=== PATIENT | female | born 1965 ===

== ENCOUNTER 2021-12-09 09:44 | Observation (INO) ==
[2021-12-09] MEDS ORDERED: HYDROmorphone 1 MG/1 ML SYRINGE IV ONE (10:20)
[2021-12-09 10:35] LABS: ABS Basophils 0.1 10^3/ul (0-0.2); ABS Eosinophils 0.1 10^3/ul (0-0.6); ABS Lymphocytes 1.1 10^3/ul (1.0-4.8); ABS Monocytes 0.3 10^3/ul (0-0.8); ABS Neutrophils 2.8 10^3/ul (1.5-7.7); Eosinophil % 3.1 %; Hematocrit 41 % (35-47); Hemoglobin 13.5 g/dL (12.0-16.0); Lymphocyte % 24.2 %; Mean Corpuscular HGB Conc 33 g/dL (31-36); Mean Corpuscular Hemoglobin 30 pg (27-31); Mean Corpuscular Volume 90 fL (80-97); Mean Platelet Volume 10.4 fL (7.4-10.4); Platelet Count 206 10^3/uL (150-450); Red Blood Count 4.55 10^6 /uL (3.70-4.87); Red Cell Distribution Width 14 % (10-15); White Blood Count 4.4 10^3/uL (3.5-10.8)
[2021-12-09] MEDS ORDERED: Morphine 4 MG/ML VIAL (1 ml) IV ONE ×2 (10:53→11:51)
[2021-12-09 10:59] LABS: Albumin 4.6 g/dL (3.2-5.2); Albumin/Globulin Ratio 2.1 (1-3); Calcium 9.3 mg/dL (8.6-10.3); Globulin 2.2 g/dL (2-4); Potassium 4.5 mmol/L (3.5-5.0); Total Bilirubin 0.5 mg/dL (0.2-1.0); Total Protein 6.8 g/dL (6.4-8.9); eGFR CKD-EPI 80.9 (>60)
[2021-12-09] MEDS ORDERED: Midazolam 5 mg/5 ml VIAL 1 mg/ml 5 ml VIAL (5 mg) IV SLOW PU ONE (12:20)
[2021-12-09] MEDS ORDERED: fentaNYL 100 mcg/2 ml 50 MCG/ML VIAL IV SLOW PU ONE (12:20)
[2021-12-09] MEDS ORDERED: Magnesium Hydroxide LIQ 30 ML UDC PO PRN (12:23)
[2021-12-09] MEDS ORDERED: diPHENhydraMINE 25 mg TAB PO PRN (12:23)
[2021-12-09] MEDS ORDERED: Ondansetron 4 mg VIAL 2 MG/ML 2 ml VIAL IV PRN ×2 (12:23→18:10)
[2021-12-09] MEDS ORDERED: Morphine 4 MG/ML VIAL (1 ml) IV PRN (12:23)
[2021-12-09] MEDS ORDERED: Lactulose 30 ml UDC PO PRN (12:23)
[2021-12-09] MEDS ORDERED: Ondansetron ODT 4 mg TAB 4 MG TAB PO PRN (12:23)
[2021-12-09] MEDS ORDERED: diPHENhydraMINE IV 50 MG/ML 1 ml VIAL (BENADRYL) IV PRN (12:23)
[2021-12-09] MEDS ORDERED: Flumazenil 0.5 mg/5 ml 0.1 MG/ML 5 ml VIAL ONE (12:46)
[2021-12-09] MEDS ORDERED: Naloxone 4 mg VIAL 0.4 MG/ML 10 ml VIAL (4 mg) ONE (12:46)
[2021-12-09] MEDS ORDERED: Lactated Ringers 1000 ml BAG 1,000 ML IV SCH (13:00)
[2021-12-09] MEDS ORDERED: fentaNYL 100 mcg/2 ml 50 MCG/ML VIAL ONE ×3 (13:28→18:22)
[2021-12-09] MEDS ORDERED: Midazolam 5 mg/5 ml VIAL 1 mg/ml 5 ml VIAL (5 mg) ONE (13:29)
[2021-12-09] MEDS ORDERED: Lidocaine 2% PF 5 ML VIAL ONE (16:31)
[2021-12-09] MEDS ORDERED: Propofol 10 MG/ML 20 ML BTL ONE ×2 (16:31→19:41)
[2021-12-09] MEDS ORDERED: Rocuronium 50 mg VIAL 10 mg/ml 5 ml VIAL (50 mg) ONE (16:32)
[2021-12-09] MEDS ORDERED: Midazolam 2 mg/2 ml VIAL 1 mg/ml 2 ml VIAL (2 mg) ONE (16:32)
[2021-12-09 16:39] LABS: INR 1.09 (0.86-1.15)
[2021-12-09] MEDS ORDERED: Lidocaine 1% MPF 5 ML VIAL ONE (16:49)
[2021-12-09] MEDS ORDERED: ROPIVACAINE 5 MG/ML 30 ML BTL (0.5%) ONE (16:49)
[2021-12-09] MEDS ORDERED: Bupivacaine 0.25% SDV 30 ML ONE (16:50)
[2021-12-09] MEDS ORDERED: ceFAZolin 2 GM in NS PREMIX 2 GM/100 ML BAG IVPB ONE (17:23)
[2021-12-09] MEDS ORDERED: Acetaminophen IV 1 GM/100ML 100 ML IV PRN (18:10)
[2021-12-09] MEDS ORDERED: DiMENhydriNATE IV 50 mg/ml 1 ml VIAL IV PUSH PRN (18:10)
[2021-12-09] MEDS ORDERED: fentaNYL 100 mcg/2 ml 50 MCG/ML VIAL IV PRN (18:10)
[2021-12-09] MEDS ORDERED: Naloxone 0.4 mg VIAL 0.4 mg/ml 1 ml VIAL IV PRN (18:10)
[2021-12-09] MEDS ORDERED: Ondansetron 4 mg VIAL 2 MG/ML 2 ml VIAL ONE (18:20)
[2021-12-09] MEDS ORDERED: Dexamethasone IV 4 MG/ML VIAL 1 ml VIAL ONE (18:20)
[2021-12-09] MEDS ORDERED: Acetaminophen IV 1 GM/100ML 100 ML IV ONE (20:10)
[2021-12-09] MEDS ORDERED: HYDROmorphone 1 MG/1 ML SYRINGE ONE (20:10)
[2021-12-09] MEDS: HYDROmorphone 1 MG/1 ML SYRINGE IV PRN ×3 (20:12→20:36)
[2021-12-09] MEDS: Magnesium Hydroxide LIQ 30 ML UDC PO SCH (22:53)
[2021-12-10] MEDS: ceFAZolin VIAL 1 GM in NS 0.9% 50 ML 50 ML IVPB SCH ×2 (02:13→09:49)
[2021-12-10 08:54] LABS: Hematocrit 33 % (35-47); Mean Platelet Volume 10.4 fL (7.4-10.4); Platelet Count 172 10^3/uL (150-450)
[2021-12-10] MEDS ORDERED: Vitamin THERAPEUTIC TAB PO SCH (09:00)
[2021-12-10 09:25] LABS: Calcium 8.8 mg/dL (8.6-10.3); Potassium 4.4 mmol/L (3.5-5.0); eGFR CKD-EPI 85.7 (>60)
[2021-12-10] MEDS: Magnesium Hydroxide LIQ 30 ML UDC PO SCH (09:49)
[2021-12-10 12:21] VITALS: BP 121/71
== END 2021-12-10 16:30 | disposition home or self-care (01) ==
LOC: ED 09:44 → EDHOLD 12:39 → INTOOBSV 12:39 → SSU 15:40
PROVIDERS: ADMIT Orthopaedic Surgery Hand Surgery; ATTEND Orthopaedic Surgery Hand Surgery